=== PATIENT | male | born 1955 | race Caucasian/White ===

== ENCOUNTER 2025-03-16 14:48 | Outpatient (RCR) | payer SELFPAY | END 2025-07-24 10:22 | disposition home or self-care (01) | LOC: HO.PT 14:48 | PROVIDERS: PCP Internal Medicine; Visit Provider Dentist Orthodontics and Dentofacial Orthopedics | DX: R68.84 Jaw pain (principal); M26.609 Unspecified temporomandibular joint disorder, unspecified side; R51.9 Headache, unspecified; H93.19 Tinnitus, unspecified ear | CPT/HCPCS: 97110; 97140; 97161 ==